=== PATIENT | male | born 1935 | race Caucasian/White ===

== ENCOUNTER → 2019-02-13 | Outpatient (CLI) | payer OTHER, BC ==
[~2019-02-13] VITALS: Ht 180.3 cm; Wt 83.9 kg
[~2019-02-13] MED LIST: AMLODIPINE BESY10 MG PO; ASPIR 8181 MG PO; ASPIRIN325 PO; CARVEDILOL12.5 MG PO; CLOPIDOGREL75 MG PO; COLACE100 MG PO; FELODIPINE 5 MG5 M1 PO; HYDROCHLOROTH12.5 M1 PO; INVANZ 1GM/NS 101 GM IV; LANTUS100 UNIT/M SUBQ; LIPITOR 20 MG T20 M1 PO; LISINOPRIL10 MG PO; NEURONTIN600 MG PO; NOVOLOG100 UNIT/1 INJ; PRAVACHOL40 MG PO; TRAZODONE HCL50 MG PO; ULTRAM 50MG TAB50 MG PO
[2019-02-13 07:04] LABS: HEMATOCRIT 35.6 % (42.0-52.0); HEMOGLOBIN 12.2 gm/dL (14.0-18.0); MCH 32.2 pg (26.0-34.0); MCHC 34.3 g/dL (28.0-37.0); MCV 93.9 fL (80.0-100.0); RBC 3.79 mil/uL (4.50-6.00); RDW 12.7 % (10.5-14.5); WBC 6.3 thou/uL (4.0-11.0)
[2019-02-13 07:07] VITALS: BP 130/61
[2019-02-13 07:16] LABS: CALCIUM 9.6 mg/dL (8.5-10.1); CREATININE 1.9 mg/dL (0.7-1.3); POTASSIUM 3.9 mmol/L (3.5-5.1)
--- NOTE | 2019-02-13 08:48 | EKG ---
[place] [address] [facility] [place] [address] ELECTROCARDIOGRAM REPORT Name: AMY WORTHYIL Room #: REG DAMARIHeydi Beverly#: [id number] ������������������ Admission: 02/13/19 ������������������ Attend Phys: Desmond Eisenberg MD, Discharge: ������������������ Date of : 37 Report #: [id number] ����������������������������������������������������������������� [id number] THIS REPORT FOR: //name// [facility] Test Date: 2019-02-13 Test Time: 07:20:00 Pat Name: ZULEMA WORTHY Department: Room: Gender: Demand Equipment Repairer: Dario LEON : 1935 Requested By: Desmond Eisenberg Order Number: [id number] MD: Martin Almaraz Measurements Intervals [place] Rate: 66 P: -9 WY: 169 QRS: -13 QRSD: 93 T: 32 QT: 426 QTc: 447 Interpretive Statements PLEASE NOTE THIS ECG WAS ACTUALLY PERFORMED ON 2018 AT 07:20 AM Sinus rhythm No significant abnormality Compared to ECG 12/01/2014 07:44:49 No significant changes Electronically Signed On 02-13-2019 7:52:34 CDT by Martin Almaraz [email or web address] ��������������������������������������������� <ELECTRONICALLY SIGNED> ���������������������������������������� By: Martin Alamraz MD, [facility] ��������������������������������������������� 02/13/1947 9 9 Martin Almaraz MD, [facility] /EPI
--- NOTE | 2019-02-13 16:12 | CATHLAB ---
[facility] [address] [place] [address] INVASIVE PROCEDURE REPORT Name: ZULEMA WORTHY Room #: REG DAMARI YeeFloraJulisaFlora#: [id number] ������������� Admission: 02/13/19 ������������� Attend Phys: Desmond Eisenberg, Discharge: ��� ������������� ��� Date of : 37 Date of Service: 02/13/19 1612 �� Report #: [id number] �������� ��������������������������������������������[id number] THIS REPORT FOR: //name// APPROVED REPORT Study performed: 02/13/2019 08:39:44 Patient Details Patient Status: Out-Patient Room #: The patient is a 83 year-old male Event Personnel Desmond Eisenberg Residential Treatment Counselor, Leticia Sanders RN, Federica Stanley RN RN, Татьяна Lowry, Srinivasa Gomez RTR Scrub Procedures Performed Art Access - R femoral artery* Left Heart Cath w/or w/o Coronaries [id number] [facility] Indication Chest pain Procedure Narrative The patient was brought electively to the Cardiac Catheterization Laboratory and was prepped and draped in a sterile manner. The Right Groin^ was infiltrated with 1% Lidocaine subcutaneous anesthesia. A PINNACLE 6FR Sheath #[id number] sheath was inserted into the RFA^. Coronary angiography was performed using coronary diagnostic catheters. The right coronary system was accessed and visualized with a JR 4 catheter. The left coronary system was accessed and visualized with a JL 4 catheter. The left ventricle was accessed and visualized with a Pigtail catheter. Left ventricular/Aortic Valve gradient assessed via catheter pullback. Left ventriculogram was performed in JOSEPH projection. Pre-demployment femoral angiogram was performed . Closure device was deployed with a 6 Fr 6F Fish closure. The patient tolerated the procedure well and there were no complications associated with the procedure. There was no hematoma. Intraoperative Conscious Sedation Sedation start time: 08:40 Case end Time: 10:32 Fentanyl 250 mcg Versed 3 mg Fluoro Time: 1.32 minutes [facility] [employer] [place] [address] INVASIVE PROCEDURE REPORT Name: ZULEMA WORTHY Room #: [facility] DAMARI Beverly#: [id number] ������������� Admission: 02/13/19 ������������� Attend Phys: Desmond Eisenberg, Discharge: ��� ������������� ��� Date of : 37 Date of Service: 02/13/19 1612 �� Report #: [id number] �������� ��������������������������������������������[id number] Dose: DAP 2591.00 cGycm2 290 mGy Contrast Type and Amount: Visipaque 40 ml Hemodynamics The aortic pressure is 178/69 mmHg with a mean of 108 mmHg. The left ventricular pressure is 184/4 mmHg with a mean of mmHg. The left ventricular end diastolic pressure is 26 mmHg. PCI Technique Lesion Percutaneous coronary intervention was performed on the Popliteal. 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 We'll follow these LAD and RCA lesions. Dr. Quintana performed peripheral intervention. Contrast has been limited due to renal insufficiency. Follow-up will be arranged post procedure. ��������������������������������������������� <ELECTRONICALLY SIGNED> ���������������������������������������� By: Desmond Eisenberg MD, FACC ��������������������������������������������� 02/13/191611 11 11 Desmond Eisenberg MD, FACC /INF
== END | disposition home or self-care (01) ==
LOC: CATH 06:12
PROVIDERS: Internal Medicine Cardiovascular Disease
DX: R07.9 Chest pain, unspecified (principal); I25.10 Atherosclerotic heart disease of native coronary artery without angina pectoris; I70.212 Atherosclerosis of native arteries of extremities with intermittent claudication, left leg; I70.1 Atherosclerosis of renal artery; I10 Essential (primary) hypertension; E78.5 Hyperlipidemia, unspecified; E11.9 Type 2 diabetes mellitus without complications; Z79.4 Long term (current) use of insulin; Z79.82 Long term (current) use of aspirin; Z98.890 Other specified postprocedural states; Z79.899 Other long term (current) drug therapy; Z98.52 Vasectomy status

== ENCOUNTER → 2019-06-18 | Outpatient (CLI) | payer OTHER | LOC: SJCVCIMAG 06-09 15:13 | DX: I70.203 Unspecified atherosclerosis of native arteries of extremities, bilateral legs (principal); I25.10 Atherosclerotic heart disease of native coronary artery without angina pectoris; I10 Essential (primary) hypertension; E11.9 Type 2 diabetes mellitus without complications; E78.5 Hyperlipidemia, unspecified ==

== ENCOUNTER → 2019-10-07 | Outpatient (CLI) | payer OTHER, BC | LOC: SJCVC 13:53 → SJCVCIMAG 13:53 | DX: I65.23 Occlusion and stenosis of bilateral carotid arteries (principal); R94.31 Abnormal electrocardiogram [ECG] [EKG]; I11.9 Hypertensive heart disease without heart failure; I25.10 Atherosclerotic heart disease of native coronary artery without angina pectoris; E78.5 Hyperlipidemia, unspecified; E11.9 Type 2 diabetes mellitus without complications; I73.9 Peripheral vascular disease, unspecified; Z79.899 Other long term (current) drug therapy ==

== ENCOUNTER → 2020-06-14 | Outpatient (CLI) | payer OTHER, BC | LOC: SJCVCIMAG 09:30 | PROVIDERS: ATTEND Internal Medicine Cardiovascular Disease | DX: I08.3 Combined rheumatic disorders of mitral, aortic and tricuspid valves (principal); I25.10 Atherosclerotic heart disease of native coronary artery without angina pectoris; I10 Essential (primary) hypertension; E78.5 Hyperlipidemia, unspecified; I73.9 Peripheral vascular disease, unspecified; E11.9 Type 2 diabetes mellitus without complications; Z79.82 Long term (current) use of aspirin; Z79.4 Long term (current) use of insulin; Z79.899 Other long term (current) drug therapy ==

== ENCOUNTER → 2021-03-14 | Outpatient (CLI) | payer OTHER, BC | LOC: SJCVC 09:38 | PROVIDERS: ATTEND Internal Medicine Cardiovascular Disease | DX: R94.31 Abnormal electrocardiogram [ECG] [EKG] (principal); I25.10 Atherosclerotic heart disease of native coronary artery without angina pectoris; I10 Essential (primary) hypertension; E78.5 Hyperlipidemia, unspecified; I73.9 Peripheral vascular disease, unspecified; I77.9 Disorder of arteries and arterioles, unspecified; E11.9 Type 2 diabetes mellitus without complications; I65.23 Occlusion and stenosis of bilateral carotid arteries; Z79.82 Long term (current) use of aspirin; Z79.4 Long term (current) use of insulin; Z79.899 Other long term (current) drug therapy ==